=== PATIENT | male | born 1950 | race Caucasian/White ===

== ENCOUNTER 2018-08-21 21:12 | Emergency (ER) | payer MEDICARE, BC ==
[2018-08-21] MEDS ORDERED: Silver Sulfadiazine 1% Crm 50 GM Tube TOP ONE (21:14)
[2018-08-21] MEDS ORDERED: Diphtheria,Pertussis(Acell),Tetanus Vaccine 0.5 ML Syringe IM ONE (21:16)
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
== END 2018-08-21 21:50 | disposition home or self-care (01) ==
LOC: MW.ED 21:12
DX: T23.212A Burn of second degree of left thumb (nail), initial encounter (principal); X10.2XXA Contact with fats and cooking oils, initial encounter; Z23 Encounter for immunization
CPT/HCPCS: 16020; 90471; 90715; 99282; A9270

== ENCOUNTER 2023-10-14 08:25 | Day surgery (SDC) | payer MEDICARE ==
[2023-10-14] MEDS: Lactated Ringers 1,000 ML IV SCH (08:49)
[2023-10-14] MEDS ORDERED: propofoL 50 ML ONE (12:01)
== END 2023-10-14 13:20 | disposition home or self-care (01) ==
LOC: MW.SDS 08:25
PROVIDERS: ATTEND Surgery
DX: Z12.11 Encounter for screening for malignant neoplasm of colon (principal); K57.30 Diverticulosis of large intestine without perforation or abscess without bleeding; M62.08 Separation of muscle (nontraumatic), other site; I10 Essential (primary) hypertension; E78.00 Pure hypercholesterolemia, unspecified; Z88.8 Allergy status to other drugs, medicaments and biological substances; Z79.82 Long term (current) use of aspirin; Z79.899 Other long term (current) drug therapy; Z87.891 Personal history of nicotine dependence; Z86.010 Personal history of colon polyps
CPT/HCPCS: 45378; J2704; J7120; 00812; 99100

== ENCOUNTER 2023-11-19 09:23 | Emergency (ER) | payer MEDICARE ==
[2023-11-19] MEDS: Ketorolac 30 MG/ML SDV IVPUSH STA (13:29)
[2023-11-19] MEDS: Morphine 4 MG/ML Syringe IVPUSH STA (13:30)
[2023-11-19] MEDS: Ondansetron 4 MG/2 ML SDV IVPUSH STA (13:30)
== END 2023-11-19 11:36 | disposition home or self-care (01) ==
LOC: MW.ED 09:23
DX: S32.041A Stable burst fracture of fourth lumbar vertebra, initial encounter for closed fracture (principal); I10 Essential (primary) hypertension; E78.00 Pure hypercholesterolemia, unspecified; Z88.8 Allergy status to other drugs, medicaments and biological substances; Z75.8 Other problems related to medical facilities and other health care; Z79.82 Long term (current) use of aspirin; Z79.899 Other long term (current) drug therapy; Z90.49 Acquired absence of other specified parts of digestive tract; W19.XXXA Unspecified fall, initial encounter
CPT/HCPCS: 72128; 72131; 96374; 96375; 99284; J1885; J2270; J2405; J3360

== ENCOUNTER 2024-02-21 01:36 | Emergency (ER) | payer MEDICARE ==
[2024-02-21 02:22] LABS: BASOPHILS ABSOLUTE AUTO 0.07 K/uL (0.00-0.20); BASOPHILS PERCENT AUTO 0.8 % (0.0-1.0); EOSINOPHILS ABSOLUTE AUTO 0.56 K/uL (0.00-0.45); EOSINOPHILS PERCENT AUTO 6.3 % (0.0-6.0); HEMATOCRIT 37.9 % (42.0-52.0); IMMATURE GRAN ABSOLUTE AUTO 0.02 K/uL (0.00-0.05); IMMATURE GRAN PERCENT AUTO 0.2 % (0.0-0.4); LYMPHOCYTES ABSOLUTE AUTO 2.83 K/uL (1.00-4.80); LYMPHOCYTES PERCENT AUTO 31.8 % (24.0-44.0); MEAN CORPUSCULAR HEMOGLOBIN 32.9 pg (28.0-32.0); MEAN CORPUSCULAR HGB CONC 34.3 g/dL (32.0-36.0); MEAN CORPUSCULAR VOLUME 95.9 fL (83.0-99.0); MEAN PLATELET VOLUME 9.2 fL (9.4-12.4); MONOCYTES ABSOLUTE AUTO 0.92 K/uL (0.00-0.80); MONOCYTES PERCENT AUTO 10.3 % (0.0-8.0); NEUTROPHILS ABSOLUTE AUTO 4.49 K/uL (1.80-7.70); NEUTROPHILS PERCENT AUTO 50.6 % (41.0-71.0); PLATELET COUNT,PLT 263 K/uL (150-400); RED BLOOD CELL COUNT 3.95 M/uL (4.52-5.90); WHITE BLOOD CELL COUNT,WBC 8.89 K/uL (3.9-11.3)
[2024-02-21 02:50] LABS: ALANINE AMINOTRANSFERASE,ALT 62 IU/L (14-63); ALBUMIN 3.3 g/dL (3.4-5.0); ALKALINE PHOSPHATASE 78 U/L (46-116); ASPARTATE AMNIOTRANSFERASE,AST 36 IU/L (15-37); BILIRUBIN TOTAL 0.3 mg/dL (0.2-1.0); BLOOD UREA NITROGEN,BUN 20 mg/dL (7.0-18.0); CALCIUM 8.8 mg/dL (8.5-10.1); CARBON DIOXIDE,CO2 28.6 mmol/L (21.0-32.0); CHLORIDE,CL 107 mmol/L (98-107); CREATININE 1.3 mg/dL (0.8-1.3); EST CRCL DRUG DOSING (CG) 47.03 mL/min; GLUCOSE RANDOM 131 mg/dL (74-106); MAGNESIUM 1.9 mg/dL (1.8-2.4); POTASSIUM,K 4.7 mmol/L (3.5-5.1); PROTEIN TOTAL,TP 6.5 g/dL (6.4-8.2); SODIUM,NA 143 mmol/L (136-148)
[2024-02-21 02:52] LABS: ESTIMATED GFR 59 mL/min (>60)
== END 2024-02-21 03:25 | disposition home or self-care (01) ==
LOC: MW.ED 01:36
DX: I49.3 Ventricular premature depolarization (principal); I10 Essential (primary) hypertension; E78.00 Pure hypercholesterolemia, unspecified; Z90.49 Acquired absence of other specified parts of digestive tract; Z79.899 Other long term (current) drug therapy; Z79.52 Long term (current) use of systemic steroids; Z79.82 Long term (current) use of aspirin; Z88.8 Allergy status to other drugs, medicaments and biological substances
CPT/HCPCS: 36415; 71045; 71045-26; 80053; 83735; 84484; 85025; 93005; 99285